=== PATIENT | male | born 1980 | race Caucasian/White ===

== ENCOUNTER 2017-02-26 22:53 | Emergency (ER) | payer SELFPAY ==
[~2017-02-26] VITALS: Ht 160 cm; Wt 78.0 kg
[2017-02-26 23:04] VITALS: Ht 160 cm; Wt 78.0 kg
[2017-02-26] MEDS ORDERED: ONDANSETRON 4 MG INJ IV STA (23:25)
[2017-02-26] MEDS ORDERED: SOD CHLORIDE 0.9% 1,000 ML IV STA (23:25)
[2017-02-26] MEDS ORDERED: morphine 4 MG/ML VIAL IV STA (23:25)
[2017-02-27] LABS: ADD SCAN DIFF NO
[2017-02-27 00:14] LABS: POTASSIUM 3.5 mmol/L (3.5-5.1)
[2017-02-27 00:16] LABS: BILIRUBIN,INDIRECT 0.5 mg/dl (0-1.1); BILIRUBIN,TOTAL 0.5 mg/dl (0.2-1.3); CREATININE 0.74 mg/dl (0.61-1.24)
[2017-02-27 00:17] LABS: ALBUMIN/GLOBULIN RATIO 1.31; CALCIUM 9.7 mg/dl (8.4-10.2); TOTAL PROTEIN 8.8 g/dl (6.1-8.1)
[2017-02-27 00:18] LABS: BASOPHILS % 0.2 % (0.0-2.0); EOSINOPHILS # 0.2 10^3/ul (0.0-0.5); EOSINOPHILS % 1.3 % (0.0-7.0); HEMATOCRIT 48.5 % (42.0-52.0); HEMOGLOBIN 16.6 g/dl (14.0-18.0); LYMPHOCYTES # 1.4 10^3/ul (0.8-2.9); MEAN CORPUSCULAR HEMOGLOBIN 29.1 pg (29.0-33.0); MEAN CORPUSCULAR HGB CONC 34.2 g/dl (32.0-37.0); MEAN CORPUSCULAR VOLUME 84.9 fl (82.0-101.0); MEAN PLATELET VOLUME 10.8 fl (7.4-10.4); MONOCYTE # 0.9 10^3/ul (0.3-0.9); MONOCYTES % 5.3 % (0.0-11.0); NEUTROPHIL # 14.6 10^3/ul (1.6-7.5); NEUTROPHILS % 84.5 % (39.0-77.0); PLATELET COUNT 250 10^3/UL (140-415); RED BLOOD COUNT 5.71 10^6/ul (4.70-6.10); RED CELL DISTRIBUTION WIDTH 11.9 % (11.5-14.5); WHITE BLOOD COUNT 17.3 10^3/ul (4.8-10.8)
[2017-02-27 00:57] LABS: ADD UMIC YES; URINE BILIRUBIN (Dip) NEGATIVE (NEGATIVE); URINE BLOOD (Dip) NEGATIVE (NEGATIVE); URINE COLOR YELLOW (YELLOW); URINE GLUCOSE (Dip) NEGATIVE (NEGATIVE); URINE KETONES (Dip) TRACE (NEGATIVE); URINE LEUKOCYTE ESTERASE (Dip) NEGATIVE (NEGATIVE); URINE NITRITE (Dip) NEGATIVE (NEGATIVE); URINE TOTAL PROTEIN (Dip) 1+ (NEGATIVE); URINE UROBILINOGEN (Dip) 0.2 E.U./dL (0.1-1.0)
--- NOTE | 2017-02-27 00:59 | ERD ---
ER Documentation Chief Complaint Date/Time DATE: 02/27/17 TIME: 00:58 Chief Complaint N/V/D started at 1900 after eating food from vending machine HPI This is a very pleasant 37-year-old male with nausea vomiting diarrhea started at 7 PM after eating food for evaluation. He had 3 episodes of diarrhea which are nonbloody. 2 episodes of vomiting which nonbilious nonbloody. Denies any fevers or chills. Denies any other current complaints. ROS All systems reviewed and are negative except as per history of present illness. PMhx/Soc Medical and Surgical Hx: pt denies Surgical Hx History of Surgery: No Anesthesia Reaction: No Hx Neurological Disorder: No Hx Respiratory Disorders: No Hx Cardiac Disorders: No Hx Psychiatric Problems: No Hx Miscellaneous Medical Probl: Yes (DM) Hx Alcohol Use: Yes (OCCASIONAL) Hx Substance Use: No Hx Tobacco Use: No Smoking Status: Never smoker Physical Exam Vitals Vital Signs Date Time Temp Pulse Resp B/P Pulse Ox O2 Delivery O2 Flow Rate FiO2 02/26/17 23:04 98.3 107 20 134/81 100 Physical Exam Const: [] Head: Atraumatic Eyes: Normal Conjunctiva ENT: Normal External Ears, Nose and Mouth. Neck: Full range of motion..~ No meningismus. Resp: Clear to auscultation bilaterally Cardio: Regular rate and rhythm, no murmurs Abd: Soft, non tender, non distended. Normal bowel sounds Skin: No petechiae or rashes Back: No midline or flank tenderness Ext: No cyanosis, or edema Neur: Awake and alert Psych: Normal Mood and Affect Result Diagram: 02/26/17 2340 02/26/17 2340 Results 24 hrs Laboratory Tests Test 02/26/17 23:40 White Blood Count 17.310^3/ul Red Blood Count 5.7110^6/ul Hemoglobin 16.6g/dl Hematocrit 48.5% Mean Corpuscular Volume 84.9fl Mean Corpuscular Hemoglobin 29.1pg Mean Corpuscular Hemoglobin Concent 34.2g/dl Red Cell Distribution Width 11.9% Platelet Count 53006^3/UL Mean Platelet Volume 10.8fl Neutrophils % 84.5% Lymphocytes % 8.0% Monocytes % 5.3% Eosinophils % 1.3% Basophils % 0.2% Nucleated Red Blood Cells % 0.0/100WBC Neutrophils # 14.610^3/ul Lymphocytes # 1.410^3/ul Monocytes # 0.910^3/ul Eosinophils # 0.210^3/ul Basophils # 0.010^3/ul Nucleated Red Blood Cells # 0.010^3/ul Sodium Level 134mmol/L Potassium Level 3.5mmol/L Chloride Level 95mmol/L Carbon Dioxide Level 27mmol/L Anion Gap 16 Blood Urea Nitrogen 15mg/dl Creatinine 0.74mg/dl Glucose Level 224mg/dl Calcium Level 9.7mg/dl Total Bilirubin 0.5mg/dl Direct Bilirubin 0.00mg/dl Indirect Bilirubin 0.5mg/dl Aspartate Amino Transf (AST/SGOT) 33IU/L Alanine Aminotransferase (ALT/SGPT) 59IU/L Alkaline Phosphatase 102IU/L Total Protein 8.8g/dl Albumin 5.0g/dl Globulin 3.80g/dl Albumin/Globulin Ratio 1.31 Lipase 439U/L Current Medications Medications (Trade) Dose Ordered Sig/Saurabh Route PRN Reason Start Time Stop Time Status Last Admin Dose Admin Sodium Chloride (NS) 1,000 ml @ 1,000 mls/hr Q1H STAT IV 02/26/17 23:25 02/27/17 00:24 DC 02/26/17 23:44 Morphine Sulfate (morphine) 4 mg ONCE STAT IV 02/26/17 23:25 02/26/17 23:26 DC 02/26/17 23:45 Ondansetron HCl (Zofran Inj) 4 mg ONCE STAT IV 02/26/17 23:25 02/26/17 23:26 DC 02/26/17 23:45 Procedures/MDM Medical decision-making: Patient has evidence of what looks to be acute gastroenteritis likely secondary to foodborne illness. At this point is clinically stable for outpatient management. Patient will be discharged home. With Sandra. Follow-up in 8 hours for serial abdominal exams. Departure Diagnosis: Primary Impression: Gastroenteritis Condition: Stable CLINT HERRON Feb 27, 2017 00:59
[2017-02-27 01:12] LABS: BACTERIA,URINE OCCASIONAL; MUCUS,URINE MODERATE; SQUAMOUS EPITHELIAL CELL,UR FEW; URINE RBCS 0-2 /HPF ([, 0])
[2017-02-27] MEDS ORDERED: ONDA4TAB14 PO (01:44)
[2017-02-27] MEDS ORDERED: DICY10CA60 PO (01:44)
[2017-02-27 02:04] VITALS: BP 128/80; PULSE 72; RESP 17; TEMP 98.2
== END 2017-02-27 02:04 | disposition home or self-care (01) ==
LOC: E/R 22:53
DX: K52.9 Noninfective gastroenteritis and colitis, unspecified (principal); E11.9 Type 2 diabetes mellitus without complications
CPT/HCPCS: 36415; 80053; 81001; 81003; 83690; 85025; 96374; 96375; 99284; J2270; J2405; J7030